=== PATIENT | male | born 1950 | race Caucasian/White ===

== ENCOUNTER → 2016-09-27 | Outpatient (CLI) | payer MEDICARE, BC ==
--- NOTE | 2016-09-27 15:56 | KCIC ---
PROCEDURE Thoracic spine, three views. HISTORY Pain. FINDINGS Frontal, lateral and swimmer's views of the thoracic spine are obtained. There is minimal thoracic dextrocurvature. There is straightening of cervical lordosis. There is minimal retrolisthesis of C5 on C6. There is degenerative endplate remodeling with disc space narrowing at this level. There is also endplate remodeling at the thoracic levels. No fracture is seen. There is a cardiac loop recorder. IMPRESSION Multilevel degenerative change. No acute finding. Electronically signed by: Paz Darby (Sep 27, 2016 15:54:08)
== END | disposition home or self-care (01) ==
LOC: KCIC 12:30
PROVIDERS: ATTEND Nurse Practitioner Family
DX: M54.6 Pain in thoracic spine (principal)
CPT/HCPCS: 72072

== ENCOUNTER → 2017-04-02 | Outpatient (CLI) | payer MEDICARE, BC ==
--- NOTE | 2017-04-02 13:48 | KCIC ---
Examination: 2 views of the left third digit HISTORY: History of injury to the left middle finger 3 weeks back COMPARISON: None available Findings: The alignment of the metacarpophalangeal joint, interphalangeal joint grossly appears unremarkable. No acute fracture. IMPRESSION: No acute osseous findings Electronically signed by: Naveen Frank MD (04/02/2017 1:45 PM) [id number]
== END | disposition home or self-care (01) ==
LOC: KCIC 13:16
PROVIDERS: ATTEND Nurse Practitioner Family
DX: S69.92XA Unspecified injury of left wrist, hand and finger(s), initial encounter (principal); X58.XXXA Exposure to other specified factors, initial encounter; Y93.89 Activity, other specified; Y92.89 Other specified places as the place of occurrence of the external cause; Y99.8 Other external cause status
CPT/HCPCS: 73140

== ENCOUNTER → 2017-10-25 | Outpatient (CLI) | payer MEDICARE, BC | END | disposition home or self-care (01) | LOC: KCIC MRI 09:22 | DX: S69.92XD Unspecified injury of left wrist, hand and finger(s), subsequent encounter (principal); T15.90XA Foreign body on external eye, part unspecified, unspecified eye, initial encounter; M25.442 Effusion, left hand; X58.XXXD Exposure to other specified factors, subsequent encounter | CPT/HCPCS: 70030; 73218 ==

== ENCOUNTER → 2020-03-10 | Outpatient (CLI) | payer MEDICARE, BC ==
--- NOTE | 2020-03-10 18:45 | KCIC ---
EXAM: MRI right shoulder DATE: 03/10/2020 12:30 PM COMPARISON: None INDICATION: RIGHT SHOULDER PAIN- Right shoulder pain after sliding into a base one month ago. TECHNIQUE: Multiplanar, multisequence MRI of the right shoulder was performed without contrast. FINDINGS: AC joint degenerative changes are seen with small AC joint effusion. Mild downsloping of the distal acromion. Type I acromion. No os acromiale. Subacromial-subdeltoid bursal edema likely from bursitis. Small right shoulder joint effusion with mild synovitis. Moderate increased signal within the supraspinatus and infraspinatus tendons. There is a partial-thickness articular sided tear of the supraspinatus tendon at the attachment measuring approximately 1 cm in AP dimension, involving approximately 60-70 percent tendon thickness. In addition approximately 2 cm from the supraspinatus attachment there is heterogeneous tendinous signal, suspicious for partial thickness articular sided tear with interspersed scar tissue. There is mild fatty atrophy of the teres minor. No quadrilateral space mass. Rotator cuff muscle signal and bulk is otherwise normal. Mild intra-articular long head biceps tendinosis. No discrete biceps tear is seen. Evaluation of the labrum is limited on this nonarthrographic study. Within these constraints, there is deformity of the anterior-inferior labrum and posterior labrum suggesting labral tear/degeneration. Edema is seen at the greater tuberosity with associated cystic change at the rotator cuff attachment, given the posterior superior location of the deformity may represent Hill-Sachs. IMPRESSION: 1. Partial-thickness articular sided tear of the anterior fibers of the supraspinatus tendon at the attachment. In addition at the posterior supraspinatus tendon there is heterogeneous signal suspicious for partial thickness articular sided tear with heterogeneous interspersed scar tissue 2. Supraspinatus and infraspinatus tendinosis. 3. Small right shoulder joint effusion with associated synovitis. 4. Right shoulder joint degenerative changes with associated labral irregularity, likely degeneration. 5. Edema within the greater tuberosity with deformity posteriorly, likely Hill-Sachs deformity Electronically signed by: Manolo Villeda MD (03/10/2020 6:42 PM) JESENIAHARVINDER
== END ==
LOC: KCIC MRI 12:27
PROVIDERS: ATTEND Family Medicine
DX: M75.111 Incomplete rotator cuff tear or rupture of right shoulder, not specified as traumatic (principal); M25.411 Effusion, right shoulder; M65.811 Other synovitis and tenosynovitis, right shoulder; R60.0 Localized edema; M21.921 Unspecified acquired deformity of right upper arm
CPT/HCPCS: 73221

== ENCOUNTER → 2021-01-18 | Outpatient (CLI) | payer MEDICARE, BC ==
--- NOTE | 2021-01-18 16:30 | KCIC ---
EXAM: AP, lateral and oblique views of the left knee DATE: 01/18/2021 11:41 AM INDICATION: Reason: LEFT KNEE PAIN / Spl. Instructions: Left medial knee pain for 6-8mths. / History: COMPARISON: No Prior FINDINGS: No acute fracture or dislocation. Chondrocalcinosis. Small patellofemoral osteophytes. Joint spaces a re preserved without significant degenerative/proliferative change. IMPRESSION: 1. No acute fracture or dislocation. 2. Mild patellofemoral degenerative change. 3. Chondrocalcinosis. Electronically signed by: Manolo Villeda MD (01/18/2021 4:28 PM) JEANNETTE
== END ==
LOC: KCIC 11:38
PROVIDERS: ATTEND Family Medicine
DX: M17.12 Unilateral primary osteoarthritis, left knee (principal); M11.262 Other chondrocalcinosis, left knee
CPT/HCPCS: 73562

== ENCOUNTER → 2021-03-31 | Outpatient (CLI) | payer MEDICARE, BC ==
--- NOTE | 2021-03-31 15:33 | KCIC ---
EXAM: Lumbar spine, 5 views; right knee, 3 views. HISTORY: Pain. COMPARISON: 01/18/2021 FINDINGS: Lumbar spine: 5 views of the lumbar spine are obtained. There is minimal lumbar levocurvature centere d at L3. There is grade 2 anterolisthesis of L5 on S1 with associated pars interarticularis defects. There is degenerative endplate remodeling with disc space narrowing and severe facet arthropathy at t his level. There is minimal endplate remodeling at the remainder of the lumbar levels. There is suspe cted bone island within the left sacrum. Right knee: 3 views of the right knee are obtained. There is a right knee arthroplasty in expected po sition. There is a small right knee effusion. There is no evidence of fracture or arthroplasty loosen ing. IMPRESSION: 1. Grade 2 anterolisthesis of L5 on S1 with associated pars defects and severe degenerative change. 2. Minimal multilevel degenerative change involving the remainder of the lumbar spine. 3. Minimal lumbar scoliosis. 4. Right knee arthroplasty in expected position. Small right knee effusion. Electronically signed by: Paz Darby MD (03/31/2021 3:31 PM) [id number]
== END ==
LOC: KCIC 14:21
PROVIDERS: ATTEND Family Medicine
DX: M47.817 Spondylosis without myelopathy or radiculopathy, lumbosacral region (principal); M43.17 Spondylolisthesis, lumbosacral region; M48.07 Spinal stenosis, lumbosacral region; M48.8X7 Other specified spondylopathies, lumbosacral region; M25.461 Effusion, right knee; M25.561 Pain in right knee; M54.5 Low back pain
CPT/HCPCS: 72110; 73562